=== PATIENT | female | born 1950 | race Caucasian/White ===

== ENCOUNTER 2018-11-15 01:04 | Emergency (ER) | payer BC ==
[2018-11-15] MEDS ORDERED: Ondansetron 4 MG/2 ML SDV IVPUSH ONE (01:54)
--- NOTE | 2018-11-15 01:58 | EDM.PDOC ---
ED HPI GENERAL MEDICAL PROBLEM - General Chief Complaint: Abdominal Pain Stated Complaint: ABD PAIN Time Seen by Provider: 11/15/18 01:56 Source of Information: Reports: Patient, Family History Limitations: Reports: No Limitations - History of Present Illness INITIAL COMMENTS - FREE TEXT/NARRATIVE: pt arrived with a history of upper abdomanal pain and profound vomiting. Onset: Sudden, Other ( started this pm. She has a history of a bowel obstruction ) Duration: Hour(s): Location: Reports: Abdomen Associated Symptoms: Reports: Loss of Appetite, Nausea/Vomiting, Weakness Abdominal Pain Score (Numeric/FACES): 5 - Related Data Allergies Allergy/AdvReac Type Severity Reaction Status Date / Time codeine AdvReac Nausea Verified 11/16/18 10:35 Home Meds: Home Meds Latanoprost 1 drop EYEBOTH BEDTIME 11/15/18 [History] Past Medical History HEENT History: Reports: Glaucoma, Impaired Vision Gastrointestinal History: Reports: Bowel Obstruction, GERD [employer] P[employer]ER History: Reports: Musculoskeletal History: Reports: Arthritis - Infectious Disease History Infectious Disease History: Reports: Chicken Pox - Past Surgical History HEENT Surgical History: Reports: Other (See Below) Other HEENT Surgeries/Procedures: deviated septum GI Surgical History: Reports: Colonoscopy, EGD Female Surgical History: Reports: Hysterectomy, Oophorectomy Social & Family History - Tobacco Use Smoking Status *Q: Never Smoker - Caffeine Use Caffeine Use: Reports: Coffee - Recreational Drug Use Recreational Drug Use: No ED ROS GENERAL - Review of Systems Review Of Systems: See Below Constitutional: Reports: No Symptoms HEENT: Reports: No Symptoms Respiratory: Reports: No Symptoms Cardiovascular: Reports: No Symptoms Endocrine: Reports: No Symptoms GI/Abdominal: Reports: Abdominal Pain, Decreased Appetite, Nausea, Vomiting : Reports: No Symptoms Musculoskeletal: Reports: No Symptoms Neurological: Reports: Dizziness ED EXAM, GI/ABD - Physical Exam Exam: See Below Text/Narrative:: pt arrived after having a acute onset of upper abdomanal pain. She vomited probably 10 times prior top arrival. She feels like it was similar to the pain she had when she had her small bowel obstruction. Exam Limited By: Other (pt was very uncomfortable in the waiting room,. She did vomit several times and after that she felt alot better.) General Appearance: Anxious, Mild Distress, Other (pt did not vomit after she got back in the room. ) Ears: Normal TMs Nose: Normal Inspection Throat/Mouth: Normal Inspection Head: Atraumatic Neck: Normal Inspection Respiratory/Chest: No Respiratory Distress Cardiovascular: Regular Rate, Rhythm GI/Abdominal Exam: Other (pt had very mild upper abdomanal tenderness) (Female) Exam: Deferred Rectal (Female) Exam: Deferred Back Exam: Normal Inspection Extremities: Normal Inspection Neurological: Alert, Oriented, Normal Cognition Psychiatric: Anxious Course - Vital Signs Last Recorded V/S: Last Vital Signs Temp 36.3 C 11/15/18 01:29 Pulse 93 11/15/18 04:23 Resp 16 11/15/18 04:23 BP 103/66 11/15/18 04:23 Pulse Ox 93 L 11/15/18 04:23 - Orders/Labs/Meds Labs: Laboratory Tests 11/15/18 11/15/18 11/15/18 Range/Units 01:45 01:45 01:55 WBC 10.4 (4.5-11.0) K/uL RBC 4.20 (3.30-5.50) M/uL Hgb 13.3 (12.0-15.0) g/dL Hct 39.9 (36.0-48.0) % MCV 95 (80-98) fL MCH 32 H (27-31) pg MCHC 33 (32-36) % Plt Count 251 (150-400) K/uL Neut % (Auto) 83 H (36-66) % Lymph % (Auto) 12 L (24-44) % [place] % (Auto) 3 (2-6) % Eos % (Auto) 1 L (2-4) % Baso % (Auto) 0 (0-1) % Sodium 138 L (140-148) mmol/L Potassium 4.1 (3.6-5.2) mmol/L Chloride 102 (100-108) mmol/L Carbon Dioxide 27 (21-32) mmol/L Anion Gap 13.1 (5.0-14.0) mmol/L BUN 16 (7-18) mg/dL Creatinine 0.8 (0.6-1.0) mg/dL Est Cr Clr Drug Dosing 52.90 mL/min Estimated GFR (MDRD) > 60 (>60) Glucose 160 H (74-106) mg/dL Calcium 9.8 (8.5-10.1) mg/dL Total Bilirubin 0.3 (0.2-1.0) mg/dL AST 18 (15-37) U/L ALT 27 (12-78) U/L Alkaline Phosphatase 43 L (46-116) U/L C-Reactive Protein 0.10 (0.0-0.3) mg/dL Total Protein 7.1 (6.4-8.2) g/dL Albumin 3.8 (3.4-5.0) g/dL Globulin 3.3 (2.3-3.5) g/dL Albumin/Globulin Ratio 1.2 (1.2-2.2) Amylase 61 (25-115) U/L Lipase 157 (73-393) U/L Urine Color Urine Appearance Urine pH (4.5-8.0) Ur Specific [place] (1.008-1.030) Urine Protein (NEGATIVE) mg/dL Urine Glucose (UA) (NEGATIVE) mg/dL Urine Ketones (NEGATIVE) mg/dL Urine Occult Blood (NEGATIVE) Urine Nitrite (NEGATIVE) Urine Bilirubin (NEGATIVE) Urine Urobilinogen (NORMAL) mg/dL Ur Leukocyte Esterase (NEGATIVE) Urine RBC (0-5) Urine WBC (0-5) Ur Epithelial Cells Amorphous Sediment Urine Bacteria Urine Mucus 11/15/18 Range/Units 02:13 WBC (4.5-11.0) K/uL RBC (3.30-5.50) M/uL Hgb (12.0-15.0) g/dL Hct (36.0-48.0) % MCV (80-98) fL MCH (27-31) pg MCHC (32-36) % Plt Count (150-400) K/uL Neut % (Auto) (36-66) % Lymph % (Auto) (24-44) % [place] % (Auto) (2-6) % Eos % (Auto) (2-4) % Baso % (Auto) (0-1) % Sodium (140-148) mmol/L Potassium (3.6-5.2) mmol/L Chloride (100-108) mmol/L Carbon Dioxide (21-32) mmol/L Anion Gap (5.0-14.0) mmol/L BUN (7-18) mg/dL Creatinine (0.6-1.0) mg/dL Est Cr Clr Drug Dosing mL/min Estimated GFR (MDRD) (>60) Glucose (74-106) mg/dL Calcium (8.5-10.1) mg/dL Total Bilirubin (0.2-1.0) mg/dL AST (15-37) U/L ALT (12-78) U/L Alkaline Phosphatase (46-116) U/L C-Reactive Protein (0.0-0.3) mg/dL Total Protein (6.4-8.2) g/dL Albumin (3.4-5.0) g/dL Globulin (2.3-3.5) g/dL Albumin/Globulin Ratio (1.2-2.2) Amylase (25-115) U/L Lipase (73-393) U/L Urine Color Yellow Urine Appearance Cloudy Urine pH 9.0 H (4.5-8.0) Ur Specific [place] 1.005 L (1.008-1.030) Urine Protein Negative (NEGATIVE) mg/dL Urine Glucose (UA) Normal (NEGATIVE) mg/dL Urine Ketones 50 H (NEGATIVE) mg/dL Urine Occult Blood Negative (NEGATIVE) Urine Nitrite Negative (NEGATIVE) Urine Bilirubin Negative (NEGATIVE) Urine Urobilinogen Normal (NORMAL) mg/dL Ur Leukocyte Esterase Negative (NEGATIVE) Urine RBC 0-5 (0-5) Urine WBC 0-5 (0-5) Ur Epithelial Cells Few Amorphous Sediment Many Urine Bacteria Many Urine Mucus Not seen Meds: Medications Discontinued Medications Generic Name Dose Route Start Last Admin Trade Name Freq PRN Reason Stop Dose Admin Sodium Chloride 1,000 mls @ 999 mls/hr 11/15/18 02:00 11/15/18 02:12 Normal Saline IV 999 mls/hr ASDIRECTED THEE Administration Sodium Chloride 70 mls @ 3 mls/sec 11/15/18 03:19 11/15/18 03:27 Normal Saline IV 11/15/18 03:20 3 mls/sec ASDIRECTED STA Administration Sodium Chloride 1,000 mls @ 500 mls/hr 11/15/18 03:45 11/15/18 04:21 Normal Saline IV 500 mls/hr ASDIRECTED THEE Administration Iopamidol 80 ml 11/15/18 03:19 11/15/18 03:26 Isovue-300 (61%) IV 11/15/18 03:20 100 ml . DIRECTED STA Administration Ondansetron HCl 4 mg 11/15/18 01:54 11/15/18 02:13 Zofran IVPUSH 11/15/18 01:55 4 mg ONETIME ONE Administration - Re-Assessments/Exams Free Text/Narrative Re-Assessment/Exam: 11/18/18 07:56 pt had a normal cbc , Her crp was within normal range. A cat scan of the abdoman was obtained which showed mild thickening in the lower ileum. There was no sign of obstruction. The pat did remain painfree during her ER stay. She was hydratedand she was given zoforan. Pt felt well . Departure - Departure Time of Disposition: 04:35 Disposition: Home, Self-Care 01 Condition: Fair Clinical Impression: Abdominal pain, Nodule of chest wall - Discharge Information Instructions: Abdominal Pain, Adult, [id number] Referrals: Nicolette Malloy PA [Primary Care Provider] - Forms: ED Department Discharge Care Plan Goals: appt with Larissa Malloy to follow up nodule of rt chest, rtc if increased pain in abdoman, stick with full liquid diet for the next few hours.
[2018-11-15] MEDS ORDERED: Sodium Chloride 0.9% 1,000 ML IV SCH ×2 (02:00→03:45)
--- NOTE | 2018-11-15 02:32 | CRLCR ---
INDICATION: Chest and abdominal pain TECHNIQUE: Chest and Abdominal radiograph 3 view COMPARISON: 12/12/2011 FINDINGS: CHEST: Mediastinum: The mediastinum is normal in appearance. The heart silhouette is normal in size and morphology. Lung: Both lungs are clear. No sign of pleural effusion seen. No pneumothorax is identified. ABDOMEN: Bowel: In the periumbilical region, there are 2 loops of small bowel there are air-filled nondilated measuring 3 cm. Soft tissue: No evidence of pneumoperitoneum present. No suspicious calcifications noted. Bone: Unremarkable for age. IMPRESSION: 1. In the periumbilical region, there are 2 loops of small bowel there are air-filled nondilated measuring 3 cm. Clinical and imaging follow-up recommended to distinguish between sentinel loop or early small bowel obstruction. Dictated by Luke Charles MD @ 11/15/2018 2:30:58 AM Dictated by: Luke Charles MD @ 11/15/2018 02:31:26 (Electronically Signed)
[2018-11-15] MEDS ORDERED: Iopamidol 612 MG/ML 100 ML Bottle IV STA (03:19)
--- NOTE | 2018-11-15 03:54 | CRLCT ---
INDICATION: Mid abdomen pain TECHNIQUE: CT Abdomen and pelvis with i.v. contrast. Coronal and sagittal reformats were obtained. CONTRAST: 80 mL Isovue 300 COMPARISON: 12/07/2011 FINDINGS: Lower chest: There is a new oblong nodular density partially visualized in the base of the right upper lobe measuring 1.6 x 0.4 cm. Liver: Unremarkable. Spleen: Unremarkable. Pancreas: Unremarkable. Gallbladder: Unremarkable. Kidney: Unremarkable. No kidney or ureteral stones or obstruction seen. Adrenal: Unremarkable. Bowel: The distal small bowel is mildly prominent in appearance with a segment of wall thickening involving the terminal ileum. The appendix is normal in appearance and size. Vascular: Unremarkable. Lymph: Unremarkable. Peritoneum: Unremarkable. No pneumoperitoneum is seen. Small amount of ascites is present. Pelvis: The patient is status post hysterectomy. Soft tissue: Unremarkable. Bone: Trace retrolisthesis of L1-2 is noted. IMPRESSIONS: 1. There is a new oblong nodular density partially visualized in the base of the right upper lobe measuring 1.6 x 0.4 cm. Follow-up outpatient chest CT is recommended for further characterization. 2. The distal small bowel is mildly prominent in appearance with a segment of wall thickening involving the terminal ileum. Clinical correlation recommended to exclude Crohn`s disease, infectious enteritis, or small bowel ischemia. Dictated by Luke Charles MD @ 11/15/2018 3:52:55 AM Please note that all CT scans at this facility use dose modulation, iterative reconstruction, and/or weight-based dosing when appropriate to reduce radiation dose to as low as reasonably achievable. Dictated by: Luke Charles MD @ 11/15/2018 03:53:00 (Electronically Signed)
== END 2018-11-15 05:33 | disposition home or self-care (01) ==
LOC: JP.ED 01:04
DX: R10.10 Upper abdominal pain, unspecified (principal); R22.2 Localized swelling, mass and lump, trunk; Z88.5 Allergy status to narcotic agent
CPT/HCPCS: 36415; 74022; 74177; 80053; 81001; 82150; 83690; 85025; 86140; 87086; 96361; 96374; 99284; J2405; J7030; Q9967

== ENCOUNTER 2018-12-06 07:23 | Day surgery (SDC) | payer BC ==
[~2018-12-06 07:23] MED LIST: Midazolam 1 MG/ML 2 ML SDV ONE; Propofol 200 MG/20 ML SDV ONE; fentaNYL 100 MCG/2 ML SDV ONE
[2018-12-06] MEDS ORDERED: Sodium Chloride 0.9% 1,000 ML IV SCH (08:15)
--- NOTE | 2018-12-07 10:28 | OR ---
DATE OF PROCEDURE: 12/06/2018 SURGEON: Landon Dominguez MD PROCEDURE: Colonoscopy. FINDINGS: No gross abnormalities. PATHOLOGY: Biopsies of terminal ileum. COMPLICATION: None. LICENSED PESTICIDE APPLICATOR: None. PREOPERATIVE DIAGNOSIS: CT scan which showed concern for inflammation of the terminal ileum. POSTOPERATIVE DIAGNOSIS: CT scan which showed concern for inflammation of the terminal ileum. PROCEDURE IN DETAIL: The patient was placed in left lateral decubitus position. Digital rectal exam was performed without abnormality. The scope was introduced and advanced atraumatically to the ileocecal valve. Within the cecum, there was no evidence of inflammation. With some minor difficulty, due to the patient's anatomy and tortuosity, the terminal ileum was able to be entered. There was no inflammation. No blood. This was biopsied using cold biopsy forceps. The scope was brought back through the remainder of the colon without any evidence of abnormality. No old or new blood. No masses. No polyps. No diverticulosis. The patient tolerated the procedure well. Landon Dominguez MD /[id number]
== END 2018-12-06 10:50 | disposition home or self-care (01) ==
LOC: JP.SDS 07:23
PROVIDERS: ATTEND Surgery
DX: R93.5 Abnormal findings on diagnostic imaging of other abdominal regions, including retroperitoneum (principal); K63.89 Other specified diseases of intestine; E78.00 Pure hypercholesterolemia, unspecified; Z88.5 Allergy status to narcotic agent
CPT/HCPCS: 45380; J2250; J2704; J3010; J7030; 88305